=== PATIENT | male | born 1970 | race African-American/Black ===

== ENCOUNTER 2017-12-15 00:29 | Emergency (ER) | payer BC, MEDICAID ==
[~2017-12-15] VITALS: Ht 188 cm; Wt 94.5 kg
[~2017-12-15 00:29] MED LIST: IBUP-24 PO; NORCO10T PO
[2017-12-15 00:48] VITALS: BP 122/85
== END 2017-12-15 00:58 | disposition home or self-care (01) ==
LOC: ER 00:30
DX: R50.9 Fever, unspecified (principal); R11.2 Nausea with vomiting, unspecified; R19.7 Diarrhea, unspecified; G89.29 Other chronic pain; F17.200 Nicotine dependence, unspecified, uncomplicated; M19.90 Unspecified osteoarthritis, unspecified site
CPT/HCPCS: 99281